=== PATIENT | male | born 1995 | race Caucasian/White ===

== ENCOUNTER 2019-07-21 10:14 | Inpatient (IN) | payer BC ==
[~2019-07-21] VITALS: Ht 175.3 cm; Wt 76.4 kg
[2019-07-21] MEDS ORDERED: SUBUTEX PO (10:31)
[2019-07-21] MEDS ORDERED: DIAZ10TA PO (10:31)
[2019-07-21] MEDS ORDERED: CITA40TA22 PO (10:31)
--- NOTE | 2019-07-21 10:35 | NUR ---
TORSTEN NAVA AT BEDSIDE FOR MSE.
[2019-07-21] MEDS ORDERED: ONDANSETRON 4 MG/2 ML VIAL ONE (10:36)
[2019-07-21] MEDS ORDERED: HYDROMORPHONE 2 MG/1 ML DISP.SYRIN ONE (10:36)
[2019-07-21] MEDS ORDERED: ONDANSETRON 4 MG/2 ML VIAL IV ONE (10:45)
[2019-07-21] MEDS ORDERED: HYDROMORPHONE 1 MG/1 ML DISP.SYRIN IV ONE (10:45)
[2019-07-21] MEDS ORDERED: IV NORMAL SALINE 1000 ML BAG IV ONE (10:45)
[2019-07-21 10:47] LABS: BASOPHILS # (AUTO) 0.1 K/uL (0.0-8.0); BASOPHILS % (AUTO) 1.3 % (0.0-2.0); EOSINOPHILS # (AUTO) 0.1 K/uL (0.0-0.7); EOSINOPHILS % (AUTO) 0.9 % (0.0-7.0); HEMATOCRIT 42.9 % (36.7-47.1); HEMOGLOBIN 14.6 g/dL (12.5-16.3); LYMPHOCYTES # (AUTO) 1.8 K/uL (20.0-40.0); LYMPHOCYTES % (AUTO) 23.3 % (20.5-51.5); MEAN CORPUSCULAR HEMOGLOBIN 32.1 uug (23.8-33.4); MEAN CORPUSCULAR HGB CONC 34 g/dL (32.5-36.3); MEAN CORPUSCULAR VOLUME 94.2 fL (73.0-96.2); MONOCYTES # (AUTO) 0.7 K/uL (2.0-10.0); MONOCYTES % (AUTO) 9.3 % (0.0-11.0); NEUTROPHILS # (AUTO) 5.1 K/uL (1.8-8.9); NEUTROPHILS % (AUTO) 65.2 % (38.5-71.5); PLATELET COUNT (AUTO) 166 K/uL (152-348); RED BLOOD CELL COUNT(AUTO) 4.55 MIL/uL (4.06-5.63); WHITE BLOOD COUNT (AUTO) 7.9 K/uL (3.6-10.2)
[2019-07-21 11:01] LABS: BILIRUBIN,DIRECT 0.1 mg/dL (0.0-0.2); BILIRUBIN,TOTAL 0.3 mg/dL (0.2-1.0); TOTAL PROTEIN, SERUM 7.3 g/dL (6.4-8.2)
[2019-07-21] MEDS ORDERED: DOCU-141 PO (11:07)
[2019-07-21] MEDS ORDERED: DOXY100C2 PO (11:07)
[2019-07-21] MEDS ORDERED: HYDR50TA62 PO (11:07)
[2019-07-21] MEDS ORDERED: CLOMID PO (11:07)
[2019-07-21] MEDS ORDERED: ACET-2605 PO (11:07)
[2019-07-21] MEDS ORDERED: CLON0.2T PO (11:07)
[2019-07-21 11:26] LABS: *BILIRUBIN,URIN NEGATIVE (NEGATIVE); *BLOOD, URINE NEGATIVE (NEGATIVE); *CLARITY,URINE CLEAR (CLEAR); *COLOR,URINE YELLOW (YELLOW); *KETONES,URINE NEGATIVE (NEGATIVE); *UROBILINOGEN,URINE 0.2 E.U./dl (NORMAL); LEUKOCYTE ESTERASE ,URINE NEGATIVE (NEGATIVE); NITRITE, URINE NEGATIVE (NEGATIVE); UGLUCOSE NEGATIVE (NEGATIVE)
--- NOTE | 2019-07-21 11:39 | NUR ---
TORSTEN NAVA SPEAKING W/ DR. EDEN RE PT'S ADMISSION.
--- NOTE | 2019-07-21 11:40 | NUR ---
Pt. admitted to [facility], under care of Dr. EDEN. Belongs List completed
--- NOTE | 2019-07-21 11:43 | NUR ---
NO INDICATION FOR NG TUBE INSERTION, PER ER .
--- NOTE | 2019-07-21 11:44 | NUR ---
ADMITTING REPORT GIVEN TO KINDRA MUHAMMAD.
--- NOTE | 2019-07-21 12:13 | NUR ---
Pt. admitted to [facility], under care of Dr. EDEN. Belongs List completed
--- NOTE | 2019-07-21 12:20 | NUR ---
ADMITTED VIA [facility]. ORIENTED TO SURROUNDINGS.
[2019-07-21 12:30] VITALS: BP 112/72
[2019-07-21] MEDS ORDERED: GLYCERIN ADULT RECTAL SUPP EACH RC PRN (13:00)
[2019-07-21] MEDS ORDERED: ZOLPIDEM 5 MG TABLET PO PRN (13:00)
[2019-07-21] MEDS ORDERED: GLYCERIN ADULT RECTAL SUPP EACH RC ONE (13:00)
[2019-07-21] MEDS ORDERED: CLONIDINE HCL 0.1 MG TABLET PO PRN (13:00)
[2019-07-21] MEDS ORDERED: diphenhydrAMINE 50 MG/1 ML VIAL IV PRN (13:00)
[2019-07-21] MEDS ORDERED: MAGNESIUM CITRATE 296 ML BOTTLE PO ONE (13:00)
[2019-07-21] MEDS ORDERED: ACETAMINOPHEN 325 MG TABLET PO PRN (13:00)
[2019-07-21] MEDS ORDERED: HYDROMORPHONE 1 MG/1 ML DISP.SYRIN IV PRN (13:00)
[2019-07-21] MEDS ORDERED: IV D5/ 0.9% NACL 1,000 ML IV PRN (13:00)
[2019-07-21] MEDS ORDERED: FLEET ENEMA 133 ML BOTTLE RC PRN (13:15)
[2019-07-21] MEDS ORDERED: NICOTINE 21 MG/24HR PATCH TD SCH (15:15)
[2019-07-21 15:47] VITALS: BP 113/64
[2019-07-21] MEDS ORDERED: HYDROMORPHONE 2 MG/1 ML DISP.SYRIN IV PRN (16:30)
[2019-07-21] MEDS: LORAZEPAM 2 MG/1 ML VIAL IV PRN ×2 (18:01→18:35)
--- NOTE | 2019-07-21 18:15 | NUR ---
SCREAMING AND THROWING ITEMS IN ROOM. PULLED OUT IV AND WRAPPED SITE WITH MERARI AND PAPER TAPE. DRESSED AND THREATENING TO LEAVE AMA. SHOUTING AND SCREAMING ON PHONE.
--- NOTE | 2019-07-21 18:55 | NUR ---
SECURITY CALLED TO ROOM. INSTRUCTED THAT ONE MORE OUTBURST AND HE WILL BE ESCORTED FROM HOSPITAL.
--- NOTE | 2019-07-21 19:05 | NUR ---
SIGNED ama and left with caregiver from the detox facility.
[2019-07-21] MEDS ORDERED: DOCUSATE SODIUM 100 MG CAPSULE PO SCH (21:00)
[2019-07-22] MEDS ORDERED: MIRALAX 17 GM POWD.PACK PO SCH (09:00)
[2019-07-22] MEDS ORDERED: CITALOPRAM 20 MG TABLET PO SCH (09:00)
[2019-07-22] MEDS ORDERED: FAMOTIDINE. 20 MG/2 ML VIAL IV SCH (09:00)
== END 2019-07-21 19:10 | disposition left against medical advice (07) | DRG 390 ==
LOC: ER 10:14 → MEDSURG3 12:03
PROVIDERS: ADMIT Internal Medicine; ATTEND Internal Medicine
DX: K56.41 Fecal impaction (principal); F17.210 Nicotine dependence, cigarettes, uncomplicated; F11.188 Opioid abuse with other opioid-induced disorder; F10.11 Alcohol abuse, in remission; Y90.9 Presence of alcohol in blood, level not specified; N20.0 Calculus of kidney; Z82.49 Family history of ischemic heart disease and other diseases of the circulatory system; F19.10 Other psychoactive substance abuse, uncomplicated
CPT/HCPCS: 36415; 83690; 85025; 87086; A4663; G0378; J1170; J1200; J2060; J2405; J7030; J7042